=== PATIENT | male | born 1975 | race Caucasian/White ===

== ENCOUNTER → 2017-10-18 15:31 | Outpatient (CLI) | payer BC, SELFPAY | PROVIDERS: PCP Family Medicine; Visit Provider Nurse Practitioner | DX: G47.30 Sleep apnea, unspecified (principal); G47.10 Hypersomnia, unspecified; R06.83 Snoring; G47.00 Insomnia, unspecified | CPT/HCPCS: 95806 ==

== ENCOUNTER → 2019-08-27 14:51 | Outpatient (CLI) | payer BC, SELFPAY ==
[2019-08-27 15:34] LABS: Basophils # 0.1 K/mm3 (0-0.2); Basophils % 0.8 % (0.1-2.0); Eosinophils # 0.1 K/mm3 (0.0-0.4); Eosinophils % 1.4 % (0.1-12.0); Hematocrit 47.6 % (42.0-52.0); Lymphocytes # 1.7 K/mm3 (0.7-4.5); Mean Corpuscular HGB Conc 33.6 g/dL (31.8-35.4); Mean Corpuscular Hemoglobin 30.3 pg (27.0-31.2); Mean Corpuscular Volume 90.1 fl (80-94); Mean Platelet Volume 7.5 fl (7.4-10.4); Monocytes # 0.4 K/mm3 (0.1-1.0); Monocytes % 6.2 % (1.7-9.3); Neutrophils # 4.5 K/mm3 (1.8-7.8); Neutrophils % 66.5 % (37.0-80.0); Platelet Count 297 K/mm3 (142-424); Red Blood Count 5.28 M/mm3 (4.60-6.20); Red Cell Distribution Width 13.5 % (11.5-17.5); White Blood Count 6.8 K/mm3 (4.8-10.8)
[2019-08-27 17:25] LABS: Troponin I 0.02 ng/ml (0.00-0.06)
[2019-08-27 17:33] LABS: Alanine Aminotransferase 32 U/L (12-78); Albumin Level 4.1 gm/dL (3.4-5.0); Albumin/Globulin Ratio 1.3 (1.1-1.8); Alkaline Phosphatase 48 U/L (46-116); Anion Gap 14.3 mEq/L (5-15); Aspartate Amino Transferase 19 U/L (15-37); Bilirubin,Total 0.3 mg/dL (0.2-1.0); Blood Urea Nitrogen 12 mg/dL (7-18); Calcium 8.5 mg/dL (8.5-10.1); Carbon Dioxide 30 mmol/L (21.0-32.0); Chloride 102 mmol/L (98-107); Creatinine,Serum 0.99 mg/dL (0.70-1.30); Estimated Glomerular Filt Rate 82 ml/min (>60); Free T4 (Free Thyroxine) 0.77 ng/dl (0.76-1.46); GFR (African American) 99 ML/MIN (>60); Globulin 3.1 gm/dl (1.3-3.2); Glucose 75 mg/dL (74-106); Potassium 4.3 mmoL/L (3.5-5.1); Sodium 142 mmol/L (136-145); Thyroid Stimulating Hormone 1.06 uIU/ml (0.358-3.740); Total Protein,Serum 7.2 gm/dL (6.4-8.2)
[2019-08-29 13:05] LABS: Myoglobin 40 ng/mL (28-72)
== END ==
PROVIDERS: Visit Provider Nurse Practitioner Family
DX: R07.89 Other chest pain (principal); R00.2 Palpitations; R20.0 Anesthesia of skin
CPT/HCPCS: 36415; 80053; 83735; 83874; 84439; 84443; 84484; 85025

== ENCOUNTER → 2019-09-25 07:50 | Outpatient (CLI) | payer BC, SELFPAY ==
--- NOTE | 2019-09-25 07:51 | CA_ITS ---
APPROVED REPORT EXAM: Comprehensive 2D, Doppler, and color-flow Echocardiogram Web Services Developer: Kandice Chance RDCS Ht: 6 ft 5 in Wt: 220lbs BSA: 2.33 BP: 136/78 mmHg Indications: Palpitations 2D Dimensions LVOT 2.07 cm (M/F) 1.5-2.5 M-Mode Dimensions RVDd 2.70 cm (0.9-2.6) LVDd 5.81 cm (3.5-5.7) LVDs 4.16 cm (3.5-5.7) IVSd 1.25 cm (0.6-1.1) PWd 0.93 cm (0.6-1.1) EF (Teich) 54.10% FS 28.40% EDV (Teich) 167.20 mL ESV (Teich) 76.80 mL LV Diastology E/A Ratio 0.88 Mitral Valve MV A Velocity 61.00 (40-130 cm/s) Left Ventricle Left atrium is mildly enlarged, left ventricle is normal size, mild concentric left ventricular hypertrophy, visually estimated ejection fraction 55% with no regional wall motion abnormality, grade 1 diastolic dysfunction seen without tissue Doppler evidence of raise left atrial pressure. Right Ventricle Right atrium and right ventricle are normal size and contractility. Aortic Valve Aortic valve is grossly normal, there is no aortic stenosis aortic insufficiency. Mitral Valve Mitral valve is grossly normal, there is mild mitral regurgitation. Tricuspid Valve Tricuspid valve is grossly normal, there is mild tricuspid regurgitation, tricuspid regurgitation jet velocity is inadequate for calculation of the right ventricular systolic pressure. Pulmonic Valve Pulmonic valve is poorly visualized. Great Vessels Aortic root is normal size. Pericardium No significant pericardial effusion noted. Conclusion 1. Mildly enlarged left atrium, normal left ventricular size, mild concentric left ventricular hypertrophy, visually estimated ejection fraction 55% with no regional wall motion abnormality, grade 1 diastolic dysfunction seen without tissue Doppler evidence of raise left atrial pressure. 2. Mild mitral and tricuspid regurgitation. 3. No significant pericardial effusion noted. Electronically signed by : Prashant Whitman, 09/25/2019 19:50:58
--- NOTE | 2019-09-25 07:51 | CA_ITS ---
APPROVED REPORT Exam: Exercise Treadmill Technologist: ainsley haynes, Ht: 6 ft 4 in Wt: 230 lbs BSA: 2.35 m2 HR: 73 bpm BP: 141/99 mmHg Indications: PalpATATIONS Medical History Medications: Escitalopram,,,,, NeBivolol,,,,, Allergies: No known drug allergies Cardiac Risk Factors: Smoking Stress Test Details Test: Pritesh HR Resting HR: 80 bpm Max Heart Rate (APMHR): 174 bpm Max HR Achieved: 150 bpm Target HR (85% APMHR): 147 bpm % of APMHR: 86 Recovery HR: 91 bpm BP Resting BP: 141/99 mmHg Max BP: 170/110 mmHg Recovery BP: 160.0/100.0 mmHg ECG Resting ECG: Sinus Rhythm Clinical Exercise duration: 07:37 min Highest Stage Achieved: Exercise capacity: 10.1 METs Stress ECG Conclusion Pritesh Protocol completed. Test stopped due to SOB. Hypertensive repsone to exercise. Patient had not taken his Bisoprolol for 3-4 days. After 9 min in recovery BP 144/90. Patient had SOB that resolved during recovery. Occasional PVC. Less than 1.5mm ST depression. Electronically signed by : Prashant Whitman, 09/25/2019 18:54:41
== END ==
PROVIDERS: PCP Nurse Practitioner Family; Visit Provider Urology
DX: I49.3 Ventricular premature depolarization (principal); R00.2 Palpitations; R06.09 Other forms of dyspnea; R40.0 Somnolence
CPT/HCPCS: 93017; 93306

== ENCOUNTER → 2019-10-16 10:00 | Outpatient (CLI) | payer BC, SELFPAY | PROVIDERS: PCP Nurse Practitioner Family; Visit Provider Urology | DX: R00.2 Palpitations (principal); I49.3 Ventricular premature depolarization | CPT/HCPCS: 93270 ==

== ENCOUNTER 2020-06-29 18:50 | Emergency (ER) | payer BC, SELFPAY ==
[2020-06-29 18:53] VITALS: BP 136/78; PULSE 78; RESP 18; TEMP 36.7; O2SAT 99; BMI 30.4
--- NOTE | 2020-06-29 19:12 | HMH.EDUTC ---
[facility] [place] Clinical Impression: Encounter for laboratory testing for COVID-19 virus Disposition: Home, Self-Care Condition on Discharge: Good Instructions: Preventing the Spread of Coronavirus Discharge Instructions Additional Instructions: *Monitor Temp, Over the counter Motrin or Tylenol as directed/as needed Tylenol every 4 hours and Motrin every 6 hours (as long as your family doctor has told you that you can take it) for fever or pain. and straight to ER if unable to lower temp less than 101.0 after medication given *Warm salt water gargles may help to soothe the throat *Throat Lozenges *Warm fluids like tea with honey may help to soothe the throat *Sleep elevated *Humidifier/Vaporizer Follow up IMMEDIATELY for new or worsening symptoms or no Noticeable improvement over the next 48-72 hours. 911 for difficulty breathing or swallowing You was tested for today for COVID19 your test result should be back later this evening, you may call back later this evening to see if your test results are back and the result You was given a handout with instructions for Self Quarantine and Self isolation for while you wait on test results and what to do if they are positive Referrals: Yaritza Gallegos APRN [Primary Care Provider] - As needed Time of Disposition: 19:13 Medical Decision Making - Yosvany Inquiry Pt receiving controlled substance: No Yosvany was queried for this patient: No Vital Signs: 06/29/20 18:53 06/29/20 19:18 Temperature 98.1 F 98.1 F Temperature Source Oral Oral Pulse Rate 78 Pulse Rate [Radial] 78 Respiratory Rate 18 18 Blood Pressure 136/78 Blood Pressure [Right Arm] 136/78 Blood Pressure Mean [Right Arm] 97 Blood Pressure Source Automatic Cuff Blood Pressure Source [Right Arm] Automatic Cuff Blood Pressure Position Sitting Blood Pressure Position [Right Arm] Sitting 02 Sat by Pulse Oximetry 99 Oxygen Delivery Method Room Air Room Air Orders (Tests/Meds): ORDERS Category Date Time Status Covid-19 Nasal PCR ([facility]) Routine Lab 06/29/20 19:03 Received [facility] [place] - General Stated complaint: Wants COVID test Time Seen by Provider: 06/29/20 19:12 Mode of Arrival: Ambulatory Source of Information: Patient Limitations: No Limitations Description of Symptoms (Recalled from Triage Doc. by RN): WANTS COVID TEST HEENT Symptoms (Recalled from RN notes): No Resp Symptoms (Recalled from RN notes): No Skin Symptoms (Recalled from RN notes): No MS Symptoms (Recalled from RN notes): No Functional Status (Recalled from RN notes): WNL - History of Present Illness Provider Complaint: Patient states that he is getting this weekend and leaving to travel to [place] on Saturday and they are requiring him to get a COVID test prior to leaving so he came in today to get a COVID test Denies any symptoms - Related Data Home Medications Medication Instructions Recorded Confirmed nebivolol 5 mg tablet 5 mg PO DAILY 08/31/19 11/13/19 Allergies Allergy/AdvReac Type Severity Reaction Status Date / Time No Known Allergies Allergy Verified 11/13/19 11:37 - Worker's Comp Is this a Worker's Comp case?: No [facility] History - Hepatitis A Screen Drug use history?: No High risk sexual behaviors?: No History of sexually transmitted infection?: No Currently employed?: No Childcare worker?: No Do you have indoor plumbing?: Yes Do you have electricity?: Yes Attestation statement:: This patient has been screened for Hepatitis A risk factors. I have reviewed the patient's past medical history: Yes Medical History: Reports:: Anxiety, Depression, Hypertension, Palpitations - Social History Smoking Status: Current every day smoker Alcohol Intake: never Alcohol Intake Frequency:: holidays/special occasions only Substance Use Type: denies use Occupational Status: other - Psychiatric History Pschychiatric History:: Reports:: Anxiety, Depression Family Hx:: Hypertension ROS Obtai
[2020-06-29 19:18] VITALS: BP 136/78; PULSE 78; RESP 18; TEMP 36.7; O2SAT 99
== END 2020-06-29 19:19 | disposition home or self-care (01) ==
PROVIDERS: Emergency Provider Nurse Practitioner; PCP Nurse Practitioner Family
DX: Z20.828 Contact with and (suspected) exposure to other viral communicable diseases (principal); F41.8 Other specified anxiety disorders; I10 Essential (primary) hypertension; F17.210 Nicotine dependence, cigarettes, uncomplicated
CPT/HCPCS: 99201; U0003

== ENCOUNTER → 2020-10-06 10:26 | Outpatient (CLI) | payer BC, SELFPAY | PROVIDERS: PCP Nurse Practitioner; Visit Provider Nurse Practitioner | DX: R06.00 Dyspnea, unspecified (principal); R00.2 Palpitations | CPT/HCPCS: 93270 ==

== ENCOUNTER → 2021-06-29 17:41 | Outpatient (CLI) | payer BC, SELFPAY | PROVIDERS: Visit Provider Nurse Practitioner | DX: Z20.822 Contact with and (suspected) exposure to COVID-19 (principal) | CPT/HCPCS: C9803; U0003; U0005 ==

== ENCOUNTER → 2021-07-10 12:12 | Outpatient (CLI) | payer BC, SELFPAY | PROVIDERS: PCP Nurse Practitioner Family; Visit Provider Nurse Practitioner | DX: Z20.822 Contact with and (suspected) exposure to COVID-19 (principal) | CPT/HCPCS: C9803; U0003; U0005 ==

== ENCOUNTER → 2021-08-15 15:38 | Outpatient (CLI) | payer BC, SELFPAY | PROVIDERS: PCP Nurse Practitioner Family; Visit Provider Nurse Practitioner | DX: Z20.822 Contact with and (suspected) exposure to COVID-19 (principal) | CPT/HCPCS: C9803; U0003; U0005 ==

== ENCOUNTER → 2021-11-14 15:18 | Outpatient (CLI) | payer BC, SELFPAY ==
--- NOTE | 2021-11-14 15:23 | US_ITS ---
FINAL REPORT TECHNIQUE: Ultrasound images of the testicles were obtained bilaterally. Color Doppler images were obtained. CLINICAL HISTORY: LT TESTICULAR PAIN,LUMP IN TESTICLE FINDINGS: The right testicle measures 2.9 x 5.2 x 4.2 cm. The left testicle measures 2.7 x 5.3 x 3.6 cm. Normal flow is identified bilaterally. There is a left varicocele. IMPRESSION: Left-sided varicocele. Reviewed, Interpreted and Dictated by Harsh Linares III, MD Transcribed by Carmita Ruiz Authenticated by Harsh Linares III, MD on 11/14/2021 04:53:28 PM [facility]
== END ==
PROVIDERS: PCP Nurse Practitioner Family; Visit Provider Nurse Practitioner Family
DX: N50.812 Left testicular pain (principal); N50.89 Other specified disorders of the male genital organs
CPT/HCPCS: 76870

== ENCOUNTER 2022-04-10 12:28 | Emergency (ER) | payer BC, SELFPAY ==
[2022-04-10 12:35] VITALS: BP 141/80; PULSE 70; RESP 17; TEMP 36.6; O2SAT 98; BMI 30.4
--- NOTE | 2022-04-10 13:04 | HMH.EDUTC ---
[facility] [place] Disposition Clinical Impression: Encounter for laboratory testing for COVID-19 virus Sinusitis Qualifiers: Sinusitis location: unspecified location Chronicity: unspecified Qualified Code(s): J32.9 - Chronic sinusitis, unspecified Disposition: Home, Self-Care Condition on Discharge: Good Instructions: DI for COVID-19 (Suspected or Confirmed ), Preventing the Spread of Coronavirus Discharge Instructions Additional Instructions: *Monitor Temp, Over the counter Motrin or Tylenol as directed/as needed Tylenol every 4 hours and Motrin every 6 hours (as long as your family doctor has told you that you can take it) for fever or pain. and straight to ER if unable to lower temp less than 101.0 after medication given *Warm salt water gargles may help to soothe the throat *Throat Lozenges *Warm fluids like tea with honey may help to soothe the throat *Sleep elevated *Humidifier/Vaporizer Follow up IMMEDIATELY for new or worsening symptoms or no Noticeable improvement over the next 48-72 hours. 911 for difficulty breathing or swallowing You were tested for today for COVID19 your test result should be back in the next 24-48 hours, you may check your results on the [facility] My Health Portal Make sure to take your Vitamins Vit. C Vit D and Zinc if you can take them Prescriptions: Fluticasone Propionate [Flonase 50mcg nasal spray 16gm] 1 spr NS DAILY #1 each Transmission Status: Pending to [id number] Azithromycin [Z-Shant 250mg Tab] 250 mg PO DIRECTED #6 tab Transmission Status: Pending to [id number] Referrals: Yaritza Gallegos APRN [Primary Care Provider] - Forms: Work/School Release Medical Decision Making - Yosvany Inquiry Pt receiving controlled substance: No Yosvany was queried for this patient: No Vital Signs: 04/10/22 12:35 Temperature 97.9 F Temperature Source Oral Pulse Rate [Right Brachial] 70 Respiratory Rate 17 Blood Pressure [Right Arm] 141/80 H Blood Pressure Mean [Right Arm] 100 Blood Pressure Source [Right Arm] Automatic Cuff Blood Pressure Position [Right Arm] Sitting 02 Sat by Pulse Oximetry 98 Oxygen Delivery Method Room Air Orders (Tests/Meds): ORDERS Category Date Time Status Covid-19 Nasal PCR ([facility]) Routine Lab 04/10/22 12:36 Received Medical Decision Narrative: Patient states that he has taken azithromycin in the past without complications or reactions [facility] [place] HPI - General Stated complaint: Covid test Time Seen by Provider: 04/10/22 13:04 Mode of Arrival: Ambulatory Source of Information: Patient Limitations: No Limitations Description of Symptoms (Recalled from Triage Doc. by RN): PATIENT C/O HEADACHE, SINUS PRESSURE, AND BODY ACHES SINCE YESTERDAY HEENT Symptoms (Recalled from RN notes): Yes Resp Symptoms (Recalled from RN notes): No Skin Symptoms (Recalled from RN notes): No MS Symptoms (Recalled from RN notes): No Functional Status (Recalled from RN notes): WNL - History of Present Illness Provider Complaint: Patient state that he has been having sinus pain and pressure and headache on and off for over a week and has got worse over the last couple of days and he started having pressure like pain in his ears yesterday so he came in to get checked - Related Data Home Medications Medication Instructions Recorded Confirmed nebivolol 5 mg tablet 5 mg PO DAILY 08/31/19 11/13/19 Previous Rx's Medication Instructions Recorded Azithromycin [Z-Shant 250mg Tab] 250 mg PO DIRECTED #6 tab 04/10/22 Fluticasone Propionate [Flonase 1 spr NS DAILY #1 each 04/10/22 50mcg nasal spray 16gm] Allergies Allergy/AdvReac Type Severity Reaction Status Date / Time No Known Allergies Allergy Verified 11/13/19 11:37 - Worker's Comp Is this a Worker's Comp case?: No [facility] History - Hepatitis A Screen Attestation statement:: This patient has been screened for Hepatitis A risk factors. I have reviewed the patient's past medical histo
[2022-04-10 13:16] VITALS: BP 141/80; PULSE 70; RESP 17; TEMP 36.6; O2SAT 98
== END 2022-04-10 13:23 | disposition home or self-care (01) ==
PROVIDERS: Emergency Provider Nurse Practitioner; PCP Nurse Practitioner Family
DX: J32.9 Chronic sinusitis, unspecified (principal); Z20.822 Contact with and (suspected) exposure to COVID-19
CPT/HCPCS: 99212; C9803; G0463; U0003; U0005

== ENCOUNTER 2023-07-20 15:28 | Emergency (ER) | payer BC, SELFPAY ==
[2023-07-20 15:45] VITALS: BP 149/94; PULSE 100; RESP 19; TEMP 37.1; O2SAT 96; BMI 31.5
--- NOTE | 2023-07-20 16:09 | EXP.UTC ---
Discharge Plan Disposition Patient Disposition: Home, Self-Care Condition: Good Prescriptions Prescriptions: New prednisone [prednisone] 20 mg tablet 20 mg PO BID 5 Days Qty: 10 0RF amoxicillin-pot clavulanate 875-125 mg Tablet 1 tab PO Q12H Qty: 20 0RF guaifenesin [Mucinex] 600 mg tablet extended release 12hr 1,200 mg PO BID PRN (Reason: cough/congestion) Qty: 20 0RF No Action Bystolic 5 mg tablet 5 mg PO DAILY Trintellix 10 mg tablet 10 mg PO DAILY Qty: 30 1RF diazepam [Valium] 10 mg tablet 10 mg PO BID PRN (Reason: anxiety) Qty: 60 0RF fluticasone propionate 120 SPRAY bottle 1 spr NS DAILY Qty: 1 0RF Rx Instructions: one spray in each nostril daily Referrals Follow up/Referrals: Yaritza Gallegos APRN [Primary Care Provider] - See instructions Activity Restrictions/Add. Instructions Additional Instructions/Restrictions: Start antibiotic today. Be sure to complete entire prescription even if feeling better Monitor temp. Tylenol every 4 hours as needed and / or ibuprofen every 6 hours as needed ( As long as your primary care physician has told you that it ok to take both. For fever/aches/pains ER if no less than 101 despite Tylenol or Motrin Humidifier/vaporizer or hot steamy shower Mucinex for your cough Be sure to drink lots of water. *Start steroid today. Helps with inflammation therefore, cough and wheezing. Follow directions on the package. Reviewed side effects. Patient reports taking them before. Follow up IMMEDIATELY for new or worsening of symptoms OR no noticeable improvement over the next 48-72 hours. 911 immediately for any life threatening symptoms such as chest pain or difficulty breathing Clinical Impressions Clinical Impression: Bronchitis Sinusitis Qualifiers: Sinusitis location: unspecified location Chronicity: unspecified Qualified Code(s): J32.9 - Chronic sinusitis, unspecified Instructions Patient Instructions: Sinusitis, DI for Sinusitis, Amoxicillin and Clavulanic Acid Discharge ED Provider: Kalli Gaxiola [facility] General Stated complaint: Head congestion,[place],dizzziness Mode of Arrival: Ambulatory Source of Information: Patient Limitations: No Limitations Time Seen by Provider: 07/20/23 16:09 Description of Symptoms (Recalled from Triage Doc. by RN): PATIENT C/O PRODUCTIVE COUGH, CONGESTION, SINUS PRESSURE, AND HEADACHE HEENT Symptoms (Recalled from RN notes): Yes Resp Symptoms (Recalled from RN notes): Yes Skin Symptoms (Recalled from RN notes): No MS Symptoms (Recalled from RN notes): No Functional Status (Recalled from RN notes): WNL History of Present Illness Provider Complaint: Patient states that he has been having sinus pain and pressure, drainage in the back of his throat and at times he can cough it up, headache and pressure like feeling in his ears States he feels like he has a bad sinus infection so he came in when it was still getting worse today Related Data Home Medications Medication Instructions Recorded Confirmed nebivolol 5 mg tablet (Bystolic) 5 mg PO DAILY 08/31/19 09/05/22 Previous Rx's Medication Instructions Recorded fluticasone propionate 50 1 spr intranasal DAILY #1 ea 04/10/22 mcg/actuation nasal spray,suspension vortioxetine 10 mg tablet 10 mg PO DAILY #30 tabs 01/08/23 (Trintellix) diazepam 10 mg tablet (Valium) 10 mg PO BID PRN anxiety #60 tabs 04/22/23 amoxicillin 875 mg-potassium 1 tab PO Q12H #20 tabs 07/20/23 clavulanate 125 mg tablet guaifenesin 600 mg tablet, 1,200 mg PO BID PRN 07/20/23 extended release 12 hr (Mucinex) cough/congestion #20 tabs prednisone 20 mg tablet 20 mg PO BID 5 days #10 tabs 07/20/23 Allergies Allergy/AdvReac Type Severity Reaction Status Date / Time No Known Allergies Allergy Verified 01/08/23 10:29 Worker's Comp Is this a Worker's Comp case?: No [facility] Disclaimer: The information contained in this
[2023-07-20 16:20] VITALS: BP 149/94; PULSE 100; RESP 19; TEMP 37.1; O2SAT 96
== END 2023-07-20 16:26 | disposition home or self-care (01) ==
PROVIDERS: Emergency Provider Nurse Practitioner; PCP Nurse Practitioner Family
DX: J20.9 Acute bronchitis, unspecified (principal); R51.9 Headache, unspecified; R09.81 Nasal congestion; R42 Dizziness and giddiness; F17.210 Nicotine dependence, cigarettes, uncomplicated
CPT/HCPCS: 99212; 99214; G0463

== ENCOUNTER 2023-11-26 12:10 | Outpatient (CLI) | payer BC, SELFPAY ==
--- NOTE | 2023-11-26 12:11 | CT_ITS ---
APPROVED REPORT Dye Machine Operator: CLINICAL INDICATION Chest Pain TECHNIQUE Image Acquisition: A 128 slice MDCT scanner ([employer] View) was used for data acquisition. A noncontrast coronary calcium scan was performed. A CT attenuation threshold of 130 Hounsfield units (HU) was used for the detection of calcium in contiguous voxels of 1 sq mm in area to be counted as individual lesions. Bolus tracking in the ascending aorta with a threshold of 180 HU was performed. Immediately afterwards, ECG synchronized cardiac CT was then performed from the cardiac base to apex using retrospective gating with ECG tube current modulation. A total of 85 mL of Isovue 370 mg/mL contrast medium was administered at 5 mL/sec followed by a saline flush using a biphasic injection protocol. A tube voltage of 120 KVp was used. The patient received the following medications prior to the cardiac CT. 0.8 mg of sublingual nitroglycerin The average heart rate at the time of acquisition was 50 bpm and regular. Image Reconstruction Transaxial images were reconstructed at 0.67 mm slide thickness. Data was reviewed interactively on an advanced workstation capable of 2 and 3-dimensional displays in all conventional reconstruction formats, including multiplanar reformations, maximum intensity projections, curved multiplanar reformations, and volume rendered reconstructions. When applicable, selected routine images describing the relevant coronary anatomy and pathology were saved and sent to PACS. Complications None Technical Quality Overall image quality was good. Coronary artery opacification was adequate. Total DLP (Dose-Length Product) is 1518.0 mGy-cm. The reported value represents the total of one or more individual components during the CT acquisition of this date and at this time, and as such, the same value may appear in more than one CT report depending on the interpreting/reporting physicians. COMPARISON None FINDINGS CT Coronary Calcium Scoring LMA (Left Main Artery) = 0 LAD (Left Anterior Descending) = 0 LCX (Left Coronary Circumflex) = 0 RCA (Right Coronary Artery) = 0 Total Calcium Score = 0 using the AJ-130 method. The interpretation of the calcium heart score is based on the following continuum*: 0 = no calcified plaque detected (risk of coronary artery disease is very low ??? less than 5%) 1-10 = calcium detected in extremely minimal levels (risk of coronary diseases is still low ??? less than 10%) 11-100 = mild levels of plaque detected with certainty (mild or minimal narrowing of heart arteries is likely) 101-400 = definite,at least moderate levels of plaque detected (relatively high risk of a heart attack within 3-5 years) >401-999 = extensive levels of plaque detected (high risk of heart attack, high levels of vascular disease are present, high likelihood of at least one significant coronary narrowing) *The calcium heart score quantifies the burden of coronary calcification/plaque in the coronary arteries. The calcium heart score is not able to evaluate the presence or burden of non-calcified (i.e. soft) plaque. There is no identifiable calcification in the aortic valve, mitral annulus or mitral valve, pericardium, or myocardium. Coronary CT Angiography The coronary arterial system is right dominant. Quantitative Stenosis Grading: Left Main (LM): The left main originates normally from the left sinus of Valsalva. The LM bifurcates into the left anterior descending artery and left circumflex artery. The LM is patent with no evidence of atherosclerosis. Left Anterior Descending (LAD) and Diagonal Branches: The LAD gives off 4 diagonal branch(es). The LAD and its branches are patent with no evidence of atherosclerosis. There is no evidence of LAD-myocardial bridge. Left Circumflex (LCX) and Obtuse Marginals (OM): The LCX gives off 1 Obtuse Marginal (OM) branch(es). The LCX and its branches are patent with no evidence of atherosclerosis. Right Coronary Artery (RCA): The RCA originates normally from the right sinus of Valsalva. The RCA gives off a posterior descending artery (PDA) and posterolateral (PL) branches. The RCA and its branches are patent with no evidence of atherosclerosis. Non-Coronary Cardiac Findings: Analysis of the left ventricular (LV) structure and function was performed after 3-D reconstruction of the LV from axial images, with user-corrected automatic contouring for assessment of LV volumes and user-defined reconstruction from oblique planes for measurement of 3-D cardiac structure and function. -The left ventricle systolic function is normal. -There is no left atrial appendage filling defect. Two right pulmonary veins and two left pulmonary veins drain normally into the left atrium. -No pericardial thickening or calcification. -Central and branch pulmonary arteries in the [id number] are unremarkable. -Thoracic aorta within the visualized thoracic aortic-branches in the [id number] is unremarkable. Extracardiac Structures No significant extra-cardiac findings. Note, however, that this study is focused on the cardiac findings. IMPRESSION -No coronary calcification with an Agatston score = 0 using the AJ-130 method. -No evidence of significant flow-limiting atherosclerosis of the coronary arteries. -CAD-RADS 0. Management recommendations per ACC/AHA guidelines*, as clinically appropriate. *Recommendations: CAD RADS 0: Reassurance. Consider non-atherosclerotic causes of chest pain. CAD RADS 1: Consider non-atherosclerotic causes of chest pain. Consider preventive therapy and risk factor modification. CAD RADS 2: Consider non-atherosclerotic causes of chest pain. Consider preventive therapy and risk factor modification, particularly for patients with nonobstructive plaque in multiple segments. CAD RADS 3: Consider further functional testing. Consider symptom-guided anti-ischemic and preventive pharmacotherapy as well as risk factor modification per published guideline statements. CAD RADS 4A: Consider further functional testing or invasive coronary angiography with revascularization per published guideline statements. Consider symptom-guided anti-ischemic and preventive pharmacotherapy as well as risk factor modification per published guideline statements. CAD RADS 4B: Invasive coronary angiography recommended with revascularization per published guideline statements. Consider symptom-guided anti-ischemic and preventive pharmacotherapy as well as risk factor modification per published guideline statements. CAD RADS 5: Consider invasive angiography and/or viability assessment with revascularization per published guideline statements. Consider symptom-guided anti-ischemic and preventive pharmacotherapy as well as risk factor modification per published guideline statements. CRITICAL RESULT None COMMUNICATION Per this written report The coronary and cardiac findings of this CCTA were reviewed, reported, and signed by Mohsen Niño MD (Drilling Engineer) Conclusion Electronically signed by : Shabana Niño MD 11/27/2023 22:27:45
[2023-11-26 12:19] VITALS: BMI 31.6
--- NOTE | 2023-11-26 12:39 | CA_ITS ---
APPROVED REPORT EXAM: Comprehensive 2D, Doppler, and color-flow Echocardiogram Cylinder Head Assembler: Dolores Guerin RVT Ht: 6 ft 4 in Wt: 264lbs BSA: 2.49 BP: 135/86 mmHg Indications: CP,HTN,PALPS,SMOKER,RBBB 2D Dimensions LA Volume 77.60 mL LA Volume Index 31.04 mL/m2 (M/F) 16-34 M-Mode Dimensions RVDd 1.73 cm (0.9-2.6) LA Diam 4.99 cm (1.9-4.0) LVDd 6.28 cm (3.5-5.7) LVDs 3.79 cm (3.5-5.7) IVSd 1.73 cm (0.6-1.1) PWd 0.84 cm (0.6-1.1) EF (Teich) 69.20% FS 39.60% EDV (Teich) 199.70 mL TAPSE 2.26 (<1.7) ESV (Teich) 61.60 mL LV Diastology E Decel Time 210 (160-240 msec) E/A Ratio 1.0 Aortic Valve MARCELLUS Index 1.94 cm2/m2 AoV Peak Karlos. 149.0 (50-130 cm/s) AO Peak GR. 8.90 mmHg AO Mean GR. 4.80 (<5 mmHg) AO VTI 34.1 (18-25 cm) MARCELLUS (VTI) 4.95 (2.5-4.5 cm2) Mitral Valve MV E Max Karlos. 60.0 (40-130 cm/s) MV A Velocity 58.0 (40-130 cm/s) E/A Ratio 1.02 MV PHT 62.0 ms Pulmonary Valve PV Peak Velocity 78.0 (50-150 cm/s) Left Ventricle The left ventricle is normal size. The left ventricular systolic function is normal. The left ventricular ejection fraction is within the normal range. There is asymmetric increase in LV wall thickness. IVSd 1.4 cm. There is no evidence of LVOT obstruction at rest or with Valsalva. There is normal LV segmental wall motion. The left ventricular diastolic function is normal. LVEF is 55%. Right Ventricle The right ventricle is normal size. The right ventricular systolic function is normal. Atria Left atrium is mildly dilated. The right atrium size is normal. Aortic Valve The aortic valve opens well. There is no aortic valvular stenosis. No aortic regurgitation is present. Mitral Valve The mitral valve is normal in structure. No evidence of systolic anterior motion. No evidence of mitral valve stenosis. There is no mitral valve regurgitation noted. Tricuspid Valve The tricuspid valve leaflets are thin and pliable. Mild tricuspid regurgitation. RVSP is normal. Pulmonic Valve The pulmonary valve is normal in structure. Trace pulmonic regurgitation. Great Vessels The aortic root is normal in size. The ascending aorta is normal in size. IVC is normal in size and collapses >50% with inspiration. Pericardium There is no pericardial effusion. Other Information Study Quality: Fair Conclusion Normal biventricular systolic function. Increase in LV wall thickness IVSd 1.4 cm. Mild LA dilation. Mild TR. In the setting of asymmetric increase in LV wall thickness and presence of symptoms, further evaluation to rule out HCM is recommended with cardiac MRI (HCM protocol). Electronically signed by : Shabana Niño MD 11/28/2023 12:51:43
[2023-11-26 12:49] LABS: Blood Urea Nitrogen 14 mg/dl (9-20); Calcium 9.1 mg/dl (8.4-10.2); Carbon Dioxide 30 mmol/L (22.0-30.0); Chloride 104 mmol/L (98-107); Creatinine Clearance Estimated 147 mL/min (50-200); Estimated Glomerular Filt Rate 79 ml/min (>60); GFR (African American) 96 ML/MIN (>60); Glucose 98 mg/dl (74-100); Sodium 139 mmol/L (136-145)
[2023-11-26 13:06] VITALS: BP 134/94; PULSE 56; RESP 16; O2SAT 96
[2023-11-26] MEDS: NITROGLYCERIN 0.4MG SL TABLET SL (13:06)
[2023-11-26 13:09] VITALS: BP 123/87; PULSE 52; RESP 16; O2SAT 96
[2023-11-26 13:15] VITALS: BP 109/69; PULSE 55
[2023-11-26 13:26] VITALS: BP 121/69; PULSE 55; RESP 16; O2SAT 98
[2023-11-26 13:36] VITALS: BP 122/77; PULSE 53; RESP 16; O2SAT 96
[2023-11-26] MEDS: 0.9 % SODIUM CHLORIDE 50 ML VIAL IV (13:54)
[2023-11-26] MEDS: SODIUM CHLORIDE 0.9% 10ML SYR (RAD ONLY) 10 ML IV (13:54)
[2023-11-26] MEDS: IOPAMIDOL-370 (76%);100ML BOTTLE 85 ML IV (13:54)
[2023-11-26 13:55] VITALS: PULSE 50; TEMP 35.5
== END 2023-11-26 13:55 | disposition home or self-care (01) ==
PROVIDERS: PCP Family Medicine; Visit Provider Nurse Practitioner
DX: R07.89 Other chest pain (principal); I45.10 Unspecified right bundle-branch block; R94.31 Abnormal electrocardiogram [ECG] [EKG]; R06.00 Dyspnea, unspecified; I49.3 Ventricular premature depolarization; F17.200 Nicotine dependence, unspecified, uncomplicated
CPT/HCPCS: 75571; 75574; 80048; 93306; Q9967

== ENCOUNTER 2023-12-02 10:11 | Outpatient (CLI) | payer BC, SELFPAY ==
--- NOTE | 2023-12-02 10:14 | CT_ITS ---
FINAL REPORT TECHNIQUE: Thin section axial images were obtained through the paranasal sinuses without contrast. CLINICAL HISTORY: Sinusitis FINDINGS: The paranasal sinuses are clear. There is no air-fluid level or significant mucosal thickening. The bilateral ethmoid infundibulum are patent. There is right nasal septal deviation. There is no acute osseous abnormality. Remaining soft tissues are within normal limits. IMPRESSION: No evidence of acute sinusitis. Right nasal septal deviation. Reviewed, Interpreted and Dictated by Sandra Escalona MD Transcribed by Dian Araujo Authenticated and [facility]
== END 2023-12-02 23:59 ==
LOC: RAD 10:12
PROVIDERS: PCP Nurse Practitioner; Visit Provider Nurse Practitioner
DX: J32.9 Chronic sinusitis, unspecified (principal); F17.210 Nicotine dependence, cigarettes, uncomplicated
CPT/HCPCS: 70486

== ENCOUNTER 2025-03-03 16:40 | Outpatient (CLI) | payer BC, SELFPAY ==
--- OUTSIDE RECORDS SUMMARY | 2025-03-03 16:43 | XMS_ITS | Clinical Summary ---
Author Organization [facility] Address [address] [place] [id number] Phone [email or web address] Care Team Providers Care Precision Lens Grinder Apprentice Name Role Phone Masood Fletcher Primary Care Provider [phone] Allergies No known active allergies Medications sildenafil (VIAGRA) 100 MG tablet Take daily as needed 01/13/2020 Active Bystolic 5 MG tablet Take 5 mg by mouth 1 (one) time each day. 06/30/2020 Active loratadine (CLARITIN) 10 MG tablet Take 10 mg by mouth 1 (one) time each day. Active diazePAM (VALIUM) 5 MG tablet 06/22/2021 Active Active Problems Problem Noted Date Diagnosed Date Low back pain 12/23/2013 Overview (02/05/2018): Family History Medical History Relation Name Comments Cancer Maternal Grandfather Diabetes Maternal Grandfather Diabetes Mother's Brother Cancer Paternal Grandfather Relation Name Status Comments Maternal Grandfather Mother's Brother Paternal Grandfather Social History Tobacco Use Types Packs/Day Years Used Date Smoking Tobacco: Every Day Cigarettes Smokeless Tobacco: Current Snuff Intimate Partner Violence Answer Date R ecorded Insults You Not on file 12/20/2020 Threatens You Not on file 12/20/2020 Screams at You Not on file 12/20/2020 Physically Hurt Not on file 12/20/2020 Intimate Partner Violence Score Not on file 12/20/2020 Stress Answer Date Recorded Stress in your Life 0 10/17/2020 Dealing with Stress Not on file 10/17/2020 Sex and Gender Information Value Date Recorded Sex Assigned at Not on file Legal Sex Male 8:38 AM CDT Gender Identity Not on file Sexual Orientation Not on file Last Filed Vital Signs Vital Sign Reading Time Taken Comments Blood Pressure 171/120 12/19/2021 3:31 PM EDT Pulse 77 12/19/2021 3:31 PM EDT Temperature 36.6 C (97.8 F) 04/21/2021 12:51 PM EDT Respiratory Rate 16 10/05/2020 9:04 AM EST Oxygen Saturation 99% 12/19/2021 3:02 PM EDT Inhaled Oxygen Concentration - - Weight 117 kg (257 lb) 12/15/2020 9:04 AM EDT Height 193 cm (6' 4 ) 12/15/2020 9:04 AM EDT Body Mass Index 31.28 12/15/2020 9:04 AM EDT Plan of Treatment Health Maintenance Due Date Last Done Comments Dental Cleaning/Exam 1973 Hepatitis B Immunization (1 of 3 - 19+ 3-dose series) 1992 Tetanus Diphtheria and Pertu ssis Immunization (1 - Tdap) 1992 Colorectal Cancer Screening 2003 Zoster Immunization (1 of 2) 2023 Covid-19 Immunization (1 - 2 024-25 season) 2024 Influenza Immunization (Seas on Ended) 2025 HIB Immunization Aged Out No longer e ligible based on patient's age to complete this topic HPV Immunization Aged Out No longer e ligible based on patient's age to complete this topic Hepatitis A Immunization Aged Out No longer eligible based on patient's age to complete this topic Pneumococcal: Ped (0 to 5 Yr s) and At-Risk Member (6 to 64 Yrs) Aged Out No longer e ligible based on patient's age to complete this topic Polio Immunization Aged Out No longer eligible based on patient's age to complete this topic Insurance A[place]Y IN [place] [facility] Address: [address] [place] [id number] [place] [address] Care Teams Precision Lens Grinder Apprentice Relationship Specialty Start Date End Date Masood Fletcher[address] [address] PCP - General Family Medicine 08/28/19
--- NOTE | 2025-03-03 16:46 | XR_ITS ---
FINAL REPORT TECHNIQUE: 5 views CLINICAL HISTORY: chronic back pain FINDINGS: There is no fracture present. There is no malalignment. There is moderate diffuse degenerative disc disease. Disc space narrowing is most advanced at L5-S1. Note is made of facet arthropathy. There is probable canal stenosis and neuroforaminal narrowing in the lower lumbar spine. Multiple left renal stones are identified. Largest stone is in the lower pole measuring up to 10 mm. IMPRESSION: Advanced degenerative changes in the lower lumbar spine. Reviewed, Interpreted and Dictated by Gurwinder Apple MD Transcribed by Carmita Ruiz Authenticated and [facility]
== END 2025-03-03 23:59 | disposition home or self-care (01) ==
LOC: RAD 16:41
PROVIDERS: PCP Nurse Practitioner; Visit Provider Nurse Practitioner
DX: M47.816 Spondylosis without myelopathy or radiculopathy, lumbar region (principal)
CPT/HCPCS: 72110

== ENCOUNTER 2025-07-23 07:27 | Outpatient (CLI) | payer SELFPAY ==
--- OUTSIDE RECORDS SUMMARY | 2025-07-23 07:32 | XMS_ITS | Clinical Summary ---
Author Organization [facility] Address [address] [place] [address] Phone [email or web address] Care Team Providers Care Nitrator Operator Name Role Phone Masood Fletcher Primary Care Provider [phone] Allergies No known active allergies Medications sildenafil [...] Health Maintenance Due Date Last Done Comments CT Colonography 1973 Colonoscopy 1973 Colorectal Cancer Screening Combo 1973 DNA Cologuard 1973 Dental Cleaning/Exam 1973 FIT or FOBT Test 1973 Sigmoidoscopy 1973 Hepatitis B Immunization (1 of 3 - 19+ 3-dose series) 1992 Tetanus Diphtheria and Pertu ssis Immunization (1 - Tdap) 1992 Pneumococcal: 50+ Years (1 o f 1 - PCV) 2023 Zoster Immunization (1 of 2) 2023 Covid-19 Immunization (1 - 2 season) 2025 Influenza Immunization (#1) 2025 HIB Immunization Aged Out No longer [...] patient's age to complete this topic Insurance [place] [address] [facility] [id number] [place] [address] Care Teams Nitrator Operator Relationship Specialty Start Date End Date Masood Fletcher[address] [address] PCP - General Family Medicine 08/28/19
--- NOTE | 2025-07-23 07:34 | MR_ITS ---
FINAL REPORT TECHNIQUE: Multiplanar MR without gadolinium enhancement CLINICAL HISTORY: SPINAL STENOSIS. BILATERAL LEG PAIN. FINDINGS: Sagittal images show normal vertebral height. Alignment is normal. Discogenic endplate changes are seen at L5-S1. Otherwise, signal pattern is unremarkable. T12-L1: Unremarkable. L1-2: Unremarkable. L2-3: Unremarkable. L3-4: Mild annular disc bulge with mild facet overgrowth. There is mild neuroforaminal narrowing. L4-5: Moderate annular disc bulge with mild facet overgrowth. There is mild neuroforaminal narrowing. L5-S1: Mild annular disc bulge with moderate facet overgrowth. There is mild neuroforaminal narrowing. IMPRESSION: Multilevel degenerative changes as above. Reviewed, Interpreted and Dictated by Gurwinder Apple MD Transcribed by Maya Trevino Authenticated and . [facility]
== END 2025-07-23 23:59 | disposition home or self-care (01) ==
LOC: RAD 07:30
PROVIDERS: PCP Nurse Practitioner; Visit Provider Nurse Practitioner
DX: M47.816 Spondylosis without myelopathy or radiculopathy, lumbar region (principal); M47.817 Spondylosis without myelopathy or radiculopathy, lumbosacral region; M48.00 Spinal stenosis, site unspecified
CPT/HCPCS: 72148

== ENCOUNTER 2025-08-17 22:34 | Emergency (ER) | payer BC, SELFPAY ==
[2025-08-17 22:40] VITALS: BP 156/101; PULSE 99; RESP 20; TEMP 36.8; O2SAT 99; BMI 31.6
--- NOTE | 2025-08-17 23:14 | ED_ITS ---
Discharge Plan Disposition Patient Disposition: Home, Self-Care Condition: Good Prescriptions Prescriptions: New methocarbamol 500 mg tablet 500 mg PO Q6H PRN (Reason: muscle spasm) Qty: 30 0RF lidocaine 5 % adhesive patch,medicated See Rx Instructions .ROUTE .COMPLEX Qty: 15 0RF Rx Instructions: Apply to low back or most painful area and leave on for 12 hours. Remove and leave off for 12 hours before using a new patch No Action Bystolic 5 mg tablet 5 mg PO DAILY levocetirizine [Xyzal] 5 mg tablet 5 mg PO DAILY Qty: 90 3RF azelastine 137 mcg (0.1 %) aerosol,spray 2 spray intranasal BID Qty: 30 3RF Rx Instructions: administer into each nostril doxepin 25 mg capsule 25 mg PO QHS PRN (Reason: sleep) Qty: 30 0RF escitalopram oxalate [Lexapro] 10 mg tablet 10 mg PO DAILY cholecalciferol (vitamin D3) 1,250 mcg (50,000 unit) capsule 1,250 mcg PO .2qweekly Qelbree 200 mg capsule,extended release 24hr 200 mg PO .COMPLEX Qty: 60 1RF Rx Instructions: take 1 daily for 1 week; then increase to 2 capsules daily atorvastatin 40 mg Tablet 40 mg PO HS Referrals Follow up/Referrals: Yohana Hackett APRN [Primary Care Provider, Medical] - See instructions Activity Restrictions/Add. Instructions Additional Instructions/Restrictions: You were evaluated in the ER and are believed to be appropriate for discharge at this time. Take the newly prescribed methocarbamol (muscle relaxer) as directed if needed. Do not combine this with your Flexeril. You should take 1 medication or the other. Do not drive or operate machinery after taking this medication as it may make you sleepy. Use the prescribed lidocaine patches as directed for 12 hours at a time. Remove your current lidocaine patch around 11 AM tomorrow. Take Tylenol or ibuprofen if needed for pain, do not exceed the recommended dose on the bottle. Drink water and eat a small snack each time you take these medications to avoid side effects. follow-up with your primary care doctor in 2 to 3 days as well as pain management as scheduled. Return to the ER with any new, worsening, or otherwise concerning symptoms. Clinical Impressions Clinical Impression: Degenerative disc disease Print Language Print Language: Nigerian Discharge ED Provider: Brianda Whittaker General Adult HPI General Chief complaint: PAIN Stated complaint: back pain and down leg Time Seen by Provider: 08/17/25 23:01 Mode of Arrival: Ambulatory Source of Information: Patient and Spouse Description of Symptoms (Recalled from ER Triage Doc. by RN): elizabeth presents with rught back pain that riadates down into his right leg as well. this has been occuirng for 2.5 days and he has tried flexiril, meloxicam, and trazadone all prescribed at home with no relief. he is mostly concerned that he hasnt slept in 2.5 days. History of Present Illness HPI narrative: You were evaluated in the ER and are believed to be appropriate for discharge at this time. He is complaining of low back pain radiating into the right leg. Patient states he has been dealing with this for a while and had a recent MRI that showed disc bulges but he is not able to get into pain management until the . He states he has not slept in the last 2-1/2 days because his pain has been keeping him awake. He describes it as a chronic dull ache down the back of the right leg. He states he has a burning sensation in the lower leg associated with it but no numbness, tingling, or weakness. He has not had any acute onset back pain, this has been gradual progression of a chronic problem. He has not had any falls or traumatic injury. He denies any saddle anesthesia, no bowel or bladder incontinence, no fevers or chills, no chest pain or difficulty breathing, no nausea, vomiting, diarrhea. No other associated symptoms. Patient reports he has tried from his PCP in the past Flexeril, meloxicam, trazodone, and states he has not had relief from these. He states he has not taken Tylenol or ibuprofen today but typically these do not offer him relief. Related Data Home Medications ?Medication ?Instructions ?Recorded ?Confirmed nebivolol 5 mg tablet (Bystolic) 5 mg PO DAILY 9 10/19/24 cholecalciferol (vitamin D3) 1,250 1,250 mcg PO .2qwee kly 11/11/23 10/19/24 mcg (50,000 unit) capsule escitalopram oxalate 10 mg tablet 10 mg PO DAILY 11/1010/19/24 (Lexapro) atorvastatin 40 mg tablet 40 mg PO HS 11/26/23 5 Previous Rx's ?Medication ?Instructions ?Recorded azelastine 137 mcg (0.1 %) nasal 2 spray intranasal BI D allergy 12/03/23 spray symptoms #30 mL levocetirizine 5 mg tablet (Xyzal) 5 mg PO DAILY aller gy symptoms #90 12/03/23 tabs doxepin 25 mg capsule 25 mg PO QHS PRN sleep #30 c aps 08/20/24 viloxazine 200 mg capsule,extended 200 mg PO .COMPLEX #60 caps 10/01/24 release 24 hr (Qelbree) lidocaine 5 % topical patch See Rx Instructions topica l 08/17/25 .COMPLEX #15 ea methocarbamol 500 mg tablet 500 mg PO Q6H PRN muscle s pasm #30 08/17/25 tabs Allergies Allergy/AdvReac Type Severity Reaction Status Date / Time No Known Allergies Allergy Verified 09/06/24 18:45 PFSH PFS Disclaimer: The information contained in this section may have been updated after the cherise nt was seen, as this information can be updated by other users. Medical History (Updated 08/17/25 @ 23:11 by Kinga Lopez MD) Insomnia Attention deficit disorder (ADD) in adult Sinusitis Tinnitus Posttraumatic stress disorder Major depressive disorder Tobacco dependence syndrome Daytime somnolence PVC (premature ventricular contraction) Dyspnea Palpitations Social History Smoking Status: Current every day smoker tobacco type: cigarettes packs per day: 1 quit status: considering quitting second hand exposure: No alcohol intake: current alcohol intake frequency: 3 or more drinks per day counseling given: Yes (he has been drinking 1/2 a 1/5 of bourbon) counseling provided: provider counseling and reduce to 2 or less/day substance use type: denies use counseling given: No current occupational status: unemployed and other details: fired last week Travel in the last 8 weeks?: None adopted: No caregiver/support person: No foster care: No household members: spouse housing: house lives independently: Yes marital status: number of children: 2 education level: college service: No alf: No current occupation: he is about a semester away from [employer] degree Hx Recent Travel: Yes (he recently went to [place]; for a week) out of state: Yes out of country: Yes caffeine: Yes physical activity: none working smoke detector in home: Yes fire extinguisher in home: Yes carbon monox detector in home: Yes firearms in home: Yes firearms unloaded and locked: Yes do you feel safe at home: Yes victim of physical abuse: No victim of emotional abuse: No victim of sexual abuse: No would you like helpful sources: No Have you lived/traveled outside US in past 30 days?: No Contact w/someone who lives/traveled outside US past 30 days?: No Exposure to someone with infectious disease in past 14 days?: No Do you have a fever (greater than 100.4 F or 38 C)?: No Have you tested positive for COVID-19?: No Exposed to someone with COVID-19 in past 14 days?: No Do you have a sore throat?: No Do you have a cough?: No Do you have any weakness?: No Do you have any diarrhea?: No Are you experiencing any unusual bleeding?: No Do you have any muscle aches/pain?: No Do you have any abdominal pain?: No Are you experiencing loss of taste or smell?: No Other Medical History Have you received the Flu Vaccine for this season: No Have you received the Pneumonia Vaccine: Yes ROS Obtained: Yes Systems reviewed as appropriate & no additional complaints except as documented Per HPI Physical Exam General General appearance: alert and in no apparent distress Comment: Overweight Head Head exam: atraumatic and normocephalic Eye Eye exam: Present PERRL and EOMI ENT ENT exam: Present mucous membranes moist Neck Neck exam: Present normal inspection and full ROM Chest Chest inspection: Present symmetric chest wall rise Respiratory Respiratory exam: Absent respiratory distress or stridor Cardiovascular Cardiovascular exam: Present regular rate and normal rhythm Extremities Exam Extremities exam: Present full ROM Back Exam Back exam: Present straight leg raise (R); Absent CVA tenderness (R), CVA tenderness (L) or vertebral tenderness Neurological Exam Neurological exam: Present alert, oriented X3 and other (No saddle anesthesia); Absent motor sensory deficit Psychiatric Psychiatric exam: Present normal affect and normal mood Skin Skin exam: Present warm and dry Medical Decision Making Medical Records Medical records reviewed: Yes I reviewed the patient's medical records. Screening: Per USPSTF and CDC recommendations, given the prevalence of disease in our region, it is our hospital?s policy to screen for HIV and viral Hepatitis for all patients aged 18 and over and those with ongoing risk factors. MR Comment: MRI performed 07/23/2025 demonstrates patient has disc bulges at L3- L4, L4-L5, L5-S1. There is mild associated neural foraminal narrowing. Yosvany Inquiry Pt receiving controlled substance: No Vital Signs: 08/17/25 22:40 Temperature 98.2 F Temperature Source Oral Pulse Rate [Right Radial] 99 H Respiratory Rate 20 Blood Pressure [Right Arm] 156/101 H Blood Pressure Mean [Right Arm] 119 Blood Pressure Source [Right Arm] Automatic Cuff Blood Pressure Position [Right Arm] Sitting 02 Sat by Pulse Oximetry 99 Oxygen Delivery Method Room Air Orders (Tests/Meds): ED MEDICATIONS Generic Name Dose Route Start Last Admin Trade Name Freq PRN Reason Stop Dose Admin Ketorolac Tromethamine 30 mg 08/17/25 23:07 Ketorolac 30mg/Ml Vial IM 08/17/25 23:08 ONCE ONE Lidocaine 1 each 08/17/25 23:07 Lidocaine 5% Transdermal Patch TD 08/17/25 23:08 ONCE ONE Methocarbamol 1,000 mg 08/17/25 23:15 Methocarbamol 500mg Tablet PO 09/16/25 23:14 BID [facility] Medical Decision Narrative: In summary, this 49-year-old male with history of RBBB, PTSD presents to the emergency department today with low back pain radiating into the leg gradually worsening of a chronic problem. On initial evaluation patient is hemodynamically stable, afebrile, GCS 15, ambulatory into the ER independently, no neurologic deficits, no saddle anesthesia, no bowel or bladder incontinence, no CVA tenderness, no midline tenderness or pain, no obvious muscle spasm in the low back palpated, remainder of exam benign. Differential diagnosis includes but is not limited to muscle spasm, sciatica, degenerative disc disease, radiculopathy, piriformis syndrome, I considered cauda equina but have no clinical evidence of this specifically no red flag symptoms including no sudden onset pain, no paralysis, no weakness, no saddle anesthesia, no bowel or bladder incontinence or difficulty passing urine or stool. [facility] and does not having any red flag symptoms so I do not believe labs or imaging are indicated at this time. I will proceed with conservative management with Toradol, methocarbamol, lidocaine patch. I discussed these interventions with the patient and he is willing to try them. I prescribed methocarbamol and lidocaine patches for home use. I instructed him to follow-up closely with his PCP and pain management as scheduled. Patient was given instructions on symptomatic management, follow up instructions, and return precautions for the emergency department. Patient indicated understanding and was discharged in stable condition. Critical Care Critical Care Time Critical Care Time: No
[2025-08-17] MEDS: METHOCARBAMOL 500MG TABLET 1000 MG PO (23:31)
[2025-08-17] MEDS: LIDOCAINE 5% TRANSDERMAL PATCH 1 EACH TD (23:32)
[2025-08-17] MEDS: KETOROLAC 30MG/ML VIAL 30 MG IM (23:32)
[2025-08-17 23:40] VITALS: BP 148/99; PULSE 87; RESP 20; TEMP 36.8; O2SAT 99
== END 2025-08-17 23:43 | disposition home or self-care (01) ==
PROVIDERS: Emergency Provider Student in an Organized Health Care Education/Training Program; PCP Nurse Practitioner
DX: M54.50 Low back pain, unspecified (principal); G89.29 Other chronic pain; F17.210 Nicotine dependence, cigarettes, uncomplicated; F98.8 Other specified behavioral and emotional disorders with onset usually occurring in childhood and adolescence; F32.A Depression, unspecified; F43.10 Post-traumatic stress disorder, unspecified; Z79.899 Other long term (current) drug therapy
CPT/HCPCS: 96372; 99283; J1885

== ENCOUNTER 2025-08-21 14:10 | Emergency (ER) | payer BC, SELFPAY ==
[2025-08-21 14:18] VITALS: BP 180/117; PULSE 78; RESP 20; TEMP 36.9; O2SAT 98; BMI 31.6
--- NOTE | 2025-08-21 14:27 | CT_ITS ---
PROCEDURE INFORMATION: Exam: CT Abdomen And Pelvis Without Contrast Exam date and time: 08/21/2025 3:12 PM Age: 49 years old Clinical indication: Abdominal pain; Additional info: Flank pain TECHNIQUE: Imaging protocol: Computed tomography of the abdomen and pelvis without contrast. Radiation optimization: All CT scans at this facility use at least one of these dose optimization techniques: automated exposure control; mA and/or kV adjustment per patient size (includes targeted exams where dose is matched to clinical indication); or iterative reconstruction. COMPARISON: MR LUMBAR SPINE WO CON 07/23/2025 7:32 AM FINDINGS: Liver: Normal. No mass. Gallbladder and biliary ducts: The gallbladder is unremarkable Pancreas: Normal. No ductal dilation. Spleen: The spleen demonstrates punctate calcifications, consistent with remote granulomatous organism exposure. Adrenal glands: Normal. No mass. Kidneys and ureters: 12x 10 millimeter proximal LEFT ureteral calculus causes dilatation of LEFT collecting system and LEFT ureter. The LEFT kidney is edematous and there is LEFT perirenal stranding. Nonobstructing renal calculi bilaterally Stomach and bowel: Unremarkable. No obstruction. No mucosal thickening. Appendix: Normal appendix Intraperitoneal space: Unremarkable. No free air. No significant fluid collection. Vasculature: Unremarkable. No abdominal aortic aneurysm. Lymph nodes: Unremarkable. No enlarged lymph nodes. Urinary bladder: Unremarkable as visualized. Reproductive: Unremarkable as visualized. Bones/joints: Unremarkable. No acute fracture. Soft tissues: Unremarkable. IMPRESSION: 12x 10 millimeter proximal LEFT ureteral calculus causes dilatation of LEFT collecting system and LEFT ureter. The LEFT kidney is edematous and there is LEFT perirenal stranding.
--- NOTE | 2025-08-21 14:32 | ED_ITS ---
<Statement entered by Devonte Kulkarni MD - 08/27/25 07:26> I was consulted by the GENESIS, and we discussed the complexity of the problems being addressed. I approved the treatment and management plan for this patient's care in the emergency department, thus performing a substantive portion of the medical decision making. Devonte Kulkarni MD, BISI, FACEP Discharge Plan Disposition Patient Disposition: Xfer Short-Term Hosp Condition: Good Prescriptions Prescriptions: No Action azelastine 137 mcg (0.1 %) aerosol,spray 2 spray intranasal BID Qty: 30 3RF Rx Instructions: administer into each nostril ropinirole 0.5 mg tablet 0.5 mg PO HS Qty: 14 0RF Rx Instructions: administer 1-3 hours before bedtime cyclobenzaprine 10 mg tablet 10 mg PO TID polyethylene glycol 3350 [Miralax] 17 gram Powder In Packet 17 g PO DAILY prednisone 20 mg tablet 60 mg PO DAILY omeprazole 40 mg Capsule,Delayed Release(Dr/Ec) 40 mg PO DAILY aspirin [Aspir-81] 81 mg Tablet,Delayed Release (Dr/Ec) 81 mg PO DAILY tramadol 50 mg Tablet 50 mg PO Q6H PRN (Reason: Pain, Moderate) acetaminophen 500 mg Tablet 500 mg PO Q4HP PRN (Reason: Pain, Mild) levothyroxine [Synthroid] 100 mcg Tablet 100 mcg PO DAILY lorazepam [Ativan] 0.5 mg Tablet 0.5 mg PO HS trazodone 100 mg Tablet 100 mg PO HS PRN (Reason: Sleep) melatonin 3 mg Lozenge 3 mg PO HS ferrous sulfate 325 mg (65 mg iron) Capsule, Extended Release 325 mg PO DAILY risperidone 1 mg Tablet,Disintegrating 1 mg PO DAILY risperidone 2 mg Tablet,Disintegrating 2 mg PO HS rosuvastatin 10 mg Tablet 10 mg PO DAILY metoprolol tartrate 25 mg Tablet 25 mg PO BID quetiapine [Seroquel] 50 mg Tablet 25 mg PO HS sodium chloride 1,000 mg Tablet,Soluble 1,000 mg PO DAILY methocarbamol 500 mg tablet 500 mg PO Q6H PRN (Reason: muscle spasm) Qty: 30 0RF lidocaine 5 % adhesive patch,medicated See Rx Instructions .ROUTE .COMPLEX Qty: 15 0RF Rx Instructions: Apply to low back or most painful area and leave on for 12 hours. Remove and leave off for 12 hours before using a new patch Referrals Follow up/Referrals: Yohana Hackett APRN [Primary Care Provider, Medical] - See instructions Clinical Impressions Clinical Impression: Kidney stone Stand Alone Forms Stand Alone Forms: Transfer Record - ED Instructions Patient Instructions: DI for Low Back Pain Print Language Print Language: Lithuanian Discharge ED Provider: Devonte Kulkarni General Adult HPI <Clarke Zambrano ([facility]), ANN[place] - Last Filed: 08/21/25 17:02> General Chief complaint: Back Pain/Injury Stated complaint: possible left kidney stone pain Time Seen by Provider: 08/21/25 14:24 Mode of Arrival: Ambulatory Source of Information: Patient and Spouse Description of Symptoms (Recalled from ER Triage Doc. by RN): elmer presents for left sided flank pain that started today. patient stated he had an xray of his back due to issues back in June and it stated that he had 3 non obstructing kidney stones at the time. he hasnt had any issued since then until today. he appears very uncomfortbale, stated he has been vomiting in the last 2 hours and rates it 10/10. History of Present Illness HPI narrative: 49-year-old male presents for left flank pain. Patient states he does not have a history of kidney stones but was told after he had some imaging on his back that he had some stones in his kidney. Patient states this morning started with extreme pain in the left flank and vomiting. Rates pain 10 out of 10 Related Data Home Medications ?Medication ?Instructions ?Recorded ?Confirmed acetaminophen 500 mg tablet 500 mg PO Q4HP PRN Pain, M ild 08/17/25 08/26/25 aspirin 81 mg tablet,delayed 81 mg PO DAILY 08/17/25 1 10/27/24 release cyclobenzaprine 10 mg tablet 10 mg PO TID 08/17/25 ferrous sulfate 325 mg (65 mg 325 mg PO DAILY 08/17/25 08/26/25 iron) capsule,extended release levothyroxine 100 mcg tablet 100 mcg PO DAILY 08/17/25 08/26/25 (Synthroid) lorazepam 0.5 mg tablet (Ativan) 0.5 mg PO HS 08/17/25 08/26/25 melatonin 3 mg lozenges 3 mg PO HS 08/17/25 08/26/25 metoprolol tartrate 25 mg tablet 25 mg PO BID 08/17/25 08/26/25 omeprazole 40 mg capsule,delayed 40 mg PO DAILY 08/26/25 release polyethylene glycol 3350 17 gram 17 g PO DAILY 5 08/26/25 oral powder packet (Miralax) prednisone 20 mg tablet 60 mg PO DAILY 08/17/2508/09 quetiapine 50 mg tablet (Seroquel) 25 mg PO HS 5 08/26/25 risperidone 1 mg disintegrating 1 mg PO DAILY 08/17/25 08/26/25 tablet risperidone 2 mg disintegrating 2 mg PO HS 08/17/25 tablet rosuvastatin 10 mg tablet 10 mg PO DAILY 08/17/2508/09 sodium chloride 1,000 mg soluble 1,000 mg PO DAILY 06/0308/26/25 tablet tramadol 50 mg tablet 50 mg PO Q6H PRN Pain, Moder ate 08/17/25 08/26/25 trazodone 100 mg tablet 100 mg PO HS PRN Sleep 08/1708/26/25 Previous Rx's ?Medication ?Instructions ?Recorded azelastine 137 mcg (0.1 %) nasal 2 spray intranasal BI D allergy 12/03/23 spray symptoms #30 mL lidocaine 5 % topical patch See Rx Instructions topica l 08/17/25 .COMPLEX #15 ea methocarbamol 500 mg tablet 500 mg PO Q6H PRN muscle s pasm #30 08/17/25 tabs ropinirole 0.5 mg tablet 0.5 mg PO HS #14 tabs Allergies Allergy/AdvReac Type Severity Reaction Status Date / Time No Known Allergies Allergy Verified 08/26/25 15:54 [facility] <Clarke Zambrano ([facility]), ELECTRONICS REPAIR TECHNICIAN - Last Filed: 08/21/25 17:02> [facility] Disclaimer: The information contained in this section may have been updated after the patient was seen, as this information can be updated by other users. Medical History Insomnia Attention deficit disorder (ADD) in adult Sinusitis Tinnitus Posttraumatic stress disorder Major depressive disorder Tobacco dependence syndrome Daytime somnolence PVC (premature ventricular contraction) Dyspnea Palpitations Social History Smoking Status: Current every day smoker tobacco type: cigarettes packs per day: 1 quit status: considering quitting second hand exposure: No alcohol intake: current alcohol intake frequency: 3 or more drinks per day counseling given: Yes (he has been drinking 1/2 a 1/5 of bourbon) counseling provided: provider counseling and reduce to 2 or less/day substance use type: denies use counseling given: No current occupational status: unemployed and other details: fired last week Travel in the last 8 weeks?: None adopted: No caregiver/support person: No foster care: No household members: spouse housing: house lives independently: Yes marital status: number of children: 2 education level: college service: No half-way: No current occupation: he is about a semester away from [employer] degree Hx Recent Travel: Yes (he recently went to [place]; for a week) out of state: Yes out of country: Yes caffeine: Yes physical activity: none working smoke detector in home: Yes fire extinguisher in home: Yes carbon monox detector in home: Yes firearms in home: Yes firearms unloaded and locked: Yes do you feel safe at home: Yes victim of physical abuse: No victim of emotional abuse: No victim of sexual abuse: No would you like helpful sources: No Have you lived/traveled outside [place] in past 30 days?: No Contact w/someone who lives/traveled outside US past 30 days?: No Exposure to someone with infectious disease in past 14 days?: No Do you have a fever (greater than 100.4 F or 38 C)?: No Have you tested positive for COVID-19?: No Exposed to someone with COVID-19 in past 14 days?: No Do you have a sore throat?: No Do you have a cough?: No Do you have shortness of breath?: No Do you have a headache?: No Do you have any weakness?: No Are you experiencing any nausea/vomitting?: No Do you have any diarrhea?: No Are you experiencing any unusual bleeding?: No Do you have any muscle aches/pain?: No Do you have any abdominal pain?: No Are you experiencing loss of taste or smell?: No Other Medical History Have you received the Flu Vaccine for this season: No Have you received the Pneumonia Vaccine: Yes <Camgumaro aleksandra ([facility]), ELECTRONICS REPAIR TECHNICIAN - Last Filed: 08/21/25 17:02> ROS Obtained: Yes Systems reviewed as appropriate & no additional complaints except as documented Genitourinary Male Genitourinary: Reports system reviewed and no additional complaints, except as documented, Reports as per HPI and Reports other (Flank pain) Physical Exam <Camgumaro Zambrano ([facility]), ELECTRONICS REPAIR TECHNICIAN - Last Filed: 08/21/25 17:02> General General appearance: alert and in no apparent distress ENT ENT exam: Present normal exam Respiratory Respiratory exam: Present normal lung sounds bilaterally Cardiovascular Cardiovascular exam: Present regular rate and normal rhythm Abdominal Exam Abdominal exam: Present soft and normal bowel sounds Back Exam Back exam: Present tenderness and CVA tenderness (L) Neurological Exam Neurological exam: Present alert and oriented X3 Skin Skin exam: Present warm and intact Medical Decision Making <Camgumaro Zambrano ([facility]), ELECTRONICS REPAIR TECHNICIAN - Last Filed: 08/21/25 17:02> Medical Records Medical records reviewed: Yes I reviewed the patient's medical records. Screening: Per USPSTF and CDC recommendations, given the prevalence of disease in our region, it is our hospital?s policy to screen for HIV and viral Hepatitis for all patients aged 18 and over and those with ongoing risk factors. Yosvany Inquiry Pt receiving controlled substance: No Yosvany was queried for this patient: No Vital Signs: 08/21/25 14:18 08/21/25 17:20 Temperature 98.5 F 98.2 F Temperature Source Oral Oral Pulse Rate 86 Pulse Rate [Right Radial] 78 Respiratory Rate 20 18 Blood Pressure 157/116 H Blood Pressure [Right Arm] 180/117 H Blood Pressure Mean [Right Arm] 138 Blood Pressure Source Automatic Cuff Blood Pressure Source [Right Arm] Automatic Cuff Blood Pressure Position Sitting Blood Pressure Position [Right Arm] Sitting 02 Sat by Pulse Oximetry 98 Oxygen Delivery Method Room Air Room Air Lab Data Lab results reviewed: Yes I reviewed the patient's lab results. Lab Results 08/21/25 14:18: WBC 7.7, RBC 5.48, Hgb 16.5, Hct 47.9, MCV 87.4, MCH 30.1, MCHC 34.4, RDW 12.9, Plt Count 293, MPV 9.7, Neut % (Auto) 77.7, Lymph % (Auto) 14.1, Garfield % (Auto) 6.8, Eos % (Auto) 0.5, Baso % (Auto) 0.5, Neut # (Auto) 6.0, Lymph # (Auto) 1.1, Garfield # (Auto) 0.5, Eos # (Auto) 0.0, Baso # (Auto) 0.0, Sodium 142, Potassium 4.4, Chloride 104, Carbon Dioxide 29, Anion Gap 13.4, BUN 15, Creatinine 1.10, Estimated Creat Clear 133, Estimated GFR 71, Est GFR ( Amer) 85, Glucose 104 H, Calcium 9.6, Total Bilirubin 0.6, AST 41, ALT 38, Alkaline Phosphatase 51, Total Protein 8.1, Albumin 5.2 H, Globulin 2.9, Albumin/Globulin Ratio 1.8 08/21/25 14:18 08/21/25 14:18 Orders (Tests/Meds): ED MEDICATIONS Discontinued Medications Generic Name Dose Route Start Last Admin Trade Name Freq PRN Reason Stop Dose Admin Hydromorphone HCl 0.5 mg 08/21/25 16:58 08/21/25 17:02 Hydromorphone 2mg/Ml Syringe IV 09/20/25 16:57 0.5 mg Q2HP PRN Administration Severe Pain (7-10) Sodium Chloride 1,000 mls @ 999 mls/hr 08/21/25 14:27 08/21/25 15:40 Sod Chlor 0.9% 1000ml Bag IV 08/21/25 15:27 Infused .Q1H1M ONE Infusion Ceftriaxone Sodium 2 gm/ 100 mls @ 200 mls/hr 08/21/25 17:00 08/21/25 17:35 Sodium Chloride IV 08/31/25 16:59 Infused Q24H TD Infusion Ketorolac Tromethamine 15 mg 08/21/25 14:27 08/21/25 14:39 Ketorolac 15mg/Ml Vial IV 08/21/25 14:28 15 mg ONCE ONE Administration Morphine Sulfate 4 mg 08/21/25 14:27 08/21/25 14:39 Morphine 4mg/Ml Syringe IV 08/21/25 14:28 4 mg ONCE ONE Administration Morphine Sulfate 4 mg 08/21/25 15:53 08/21/25 15:55 Morphine 4mg/Ml Syringe IV 08/21/25 15:54 4 mg ONCE ONE Administration Ondansetron HCl 4 mg 08/21/25 14:27 08/21/25 14:39 Ondansetron 4mg/2ml Vial IV 08/21/25 14:28 4 mg ONCE ONE Administration ORDERS Category Date Time Status CT abdomen pelvis wo con Stat Cat Scan 08/21/25 14:27 Completed CBC w/Auto Diff [Complete Blood Count Auto Diff] Stat Lab 08/21/25 14:18 Completed CMP [Comprehensive Metabolic Panel] Stat Lab 08/21/25 14:18 Completed Medical Decision Narrative: In summary patient is a 49-year-old male who presents to the emergency department for evaluation of left flank pain. Patient is hemodynamically stable upon arrival, afebrile. Unremarkable physical exam. Differential diagnosis includes kidney stone, infection. Initial workup will be conducted with labs, CT. Initial inventions include IV fluids, Toradol, morphine, Dilaudid, Rocephin,Zofran. Initial workup reviewed by ky CT-.12x 10 millimeter proximal LEFT ureteral calculus causes dilatation of LEFT collecting system and LEFT ureter. The LEFT kidney is edematous and there is LEFT perirenal stranding. Upon repeat evaluation after the second dose of morphine patient is resting comfortably in bed. Given this patient will need to be transferred. [facility] Hoover excepted patient for transfer <Devonte Kulkarni MD - Last Filed: 08/27/25 07:26> Vital Signs: 08/21/25 14:18 08/21/25 17:20 Temperature 98.5 F 98.2 F Temperature Source Oral Oral Pulse Rate 86 Pulse Rate [Right Radial] 78 Respiratory Rate 20 18 Blood Pressure 157/116 H Blood Pressure [Right Arm] 180/117 H Blood Pressure Mean [Right Arm] 138 Blood Pressure Source Automatic Cuff Blood Pressure Source [Right Arm] Automatic Cuff Blood Pressure Position Sitting Blood Pressure Position [Right Arm] Sitting 02 Sat by Pulse Oximetry 98 Oxygen Delivery Method Room Air Room Air Lab Data Lab Results 08/21/25 14:18: WBC 7.7, RBC 5.48, Hgb 16.5, Hct 47.9, MCV 87.4, MCH 30.1, MCHC 34.4, RDW 12.9, Plt Count 293, MPV 9.7, Neut % (Auto) 77.7, Lymph % (Auto) 14.1, Garfield % (Auto) 6.8, Eos % (Auto) 0.5, Baso % (Auto) 0.5, Neut # (Auto) 6.0, Lymph # (Auto) 1.1, Garfield # (Auto) 0.5, Eos # (Auto) 0.0, Baso # (Auto) 0.0, Sodium 142, Potassium 4.4, Chloride 104, Carbon Dioxide 29, Anion Gap 13.4, BUN 15, Creatinine 1.10, Estimated Creat Clear 133, Estimated GFR 71, Est GFR ( Amer) 85, Glucose 104 H, Calcium 9.6, Total Bilirubin 0.6, AST 41, ALT 38, Alkaline Phosphatase 51, Total Protein 8.1, Albumin 5.2 H, Globulin 2.9, Albumin/Globulin Ratio 1.8 Orders (Tests/Meds): ED MEDICATIONS Discontinued Medications Generic Name Dose Route Start Last Admin Trade Name Freq PRN Reason Stop Dose Admin Hydromorphone HCl 0.5 mg 08/21/25 16:58 08/21/25 17:02 Hydromorphone 2mg/Ml Syringe IV 09/20/25 16:57 0.5 mg Q2HP PRN Administration Severe Pain (7-10) Sodium Chloride 1,000 mls @ 999 mls/hr 08/21/25 14:27 08/21/25 15:40 Sod Chlor 0.9% 1000ml Bag IV 08/21/25 15:27 Infused .Q1H1M ONE Infusion Ceftriaxone Sodium 2 gm/ 100 mls @ 200 mls/hr 08/21/25 17:00 08/21/25 17:35 Sodium Chloride IV 08/31/25 16:59 Infused Q24H TD Infusion Ketorolac Tromethamine 15 mg 08/21/25 14:27 08/21/25 14:39 Ketorolac 15mg/Ml Vial IV 08/21/25 14:28 15 mg ONCE ONE Administration Morphine Sulfate 4 mg 08/21/25 14:27 08/21/25 14:39 Morphine 4mg/Ml Syringe IV 08/21/25 14:28 4 mg ONCE ONE Administration Morphine Sulfate 4 mg 08/21/25 15:53 08/21/25 15:55 Morphine 4mg/Ml Syringe IV 08/21/25 15:54 4 mg ONCE ONE Administration Ondansetron HCl 4 mg 08/21/25 14:27 08/21/25 14:39 Ondansetron 4mg/2ml Vial IV 08/21/25 14:28 4 mg ONCE ONE Administration ORDERS Category Date Time Status CT abdomen pelvis wo con Stat Cat Scan 08/21/25 14:27 Completed CBC w/Auto Diff [Complete Blood Count Auto Diff] Stat Lab 08/21/25 14:18 Completed CMP [Comprehensive Metabolic Panel] Stat Lab 08/21/25 14:18 Completed Critical Care <Clarke Zambrano ([facility]), ELECTRONICS REPAIR TECHNICIAN - Last Filed: 08/21/25 17:02> Critical Care Time Critical Care Time: No <Devonte Kulkarni MD - Last Filed: 08/27/25 07:26> Critical Care Time Critical Care Time: Yes Attestation: On 08/21/25, the high probability of a clinically significant, sudden or life threatening deterioration of the following system(s) required my full and direct attention, intervention and personal management. The time I documented below is in addition to time spent performing reported procedures but includes the following listed in this critical care notation. Total Time Total Critical Care Time: 35
[2025-08-21 14:34] LABS: Hematocrit 47.9 % (42.0-52.0); Hemoglobin 16.5 g/dL (14.1-18.0); Immature Granulocytes % 0.4 %; Mean Corpuscular HGB Conc 34.4 g/dL (31.8-35.4); Mean Corpuscular Hemoglobin 30.1 pg (27.0-31.2); Mean Corpuscular Volume 87.4 fl (80-94); Nucleated Red Blood Cells % 0 %; Platelet Count 293 K/mm3 (142-424); Red Blood Count 5.48 M/mm3 (4.60-6.20); Red Cell Distribution Width-SD 41.2 fL; White Blood Count 7.7 K/mm3 (4.8-10.8)
[2025-08-21] MEDS: KETOROLAC 15MG/ML VIAL 15 MG IV (14:39)
[2025-08-21] MEDS: ONDANSETRON 4MG/2ML VIAL 4 MG IV (14:39)
[2025-08-21] MEDS: MORPHINE 4MG/ML SYRINGE 4 MG IV ×2 (14:39→15:55)
[2025-08-21] MEDS: 0.9 % SODIUM CHLORIDE 1000ML 1,000 ML 999 ML IV (14:39)
[2025-08-21 14:43] LABS: Albumin Level 5.2 g/dl (3.5-5.0); Chloride 104 mmol/L (98-107)
[2025-08-21 14:44] LABS: Potassium 4.4 mmoL/L (3.5-5.1); Sodium 142 mmol/L (136-145)
[2025-08-21 14:46] LABS: Alanine Aminotransferase 38 U/L (12-78); Albumin/Globulin Ratio 1.8 (1.1-1.8); Alkaline Phosphatase 51 U/L (38-126); Anion Gap 13.4 mEq/L (5-15); Aspartate Amino Transferase 41 U/L (17-59); Bilirubin,Total 0.6 mg/dl (0.2-1.3); Blood Urea Nitrogen 15 mg/dl (9-20); Carbon Dioxide 29 mmol/L (22.0-30.0); Creatinine Clearance Estimated 133 mL/min (50-200); Creatinine,Serum 1.10 mg/dl (0.66-1.25); Estimated Glomerular Filt Rate 71 ml/min (>60); GFR (African American) 85 ML/MIN (>60); Globulin 2.9 g/dL (1.3-3.2); Total Protein,Serum 8.1 g/dl (6.3-8.2)
[2025-08-21 14:47] LABS: Calcium 9.6 mg/dl (8.4-10.2); Glucose 104 mg/dl (74-100)
--- NOTE | 2025-08-21 15:52 | PC.NURSE ---
DR GALVAN AT BEDSIDE TO UPDATE PT
--- NOTE | 2025-08-21 16:03 | PC.NURSE ---
called [facility] transfer center. Will call back with urology provider when available
--- NOTE | 2025-08-21 16:23 | PC.NURSE ---
[facility] to call [facility]ist
[2025-08-21] MEDS: HYDROMORPHONE 2MG/ML SYRINGE 0.5 MG IV (17:02)
[2025-08-21 17:20] VITALS: BP 157/116; PULSE 86; RESP 18; TEMP 36.8; O2SAT 99
== END 2025-08-21 17:20 | disposition short-term general hospital (02) ==
PROVIDERS: Nurse Practitioner Family; Emergency Provider Student in an Organized Health Care Education/Training Program; PCP Nurse Practitioner
DX: N20.2 Calculus of kidney with calculus of ureter (principal); F17.210 Nicotine dependence, cigarettes, uncomplicated; F98.8 Other specified behavioral and emotional disorders with onset usually occurring in childhood and adolescence; F43.10 Post-traumatic stress disorder, unspecified; F32.9 Major depressive disorder, single episode, unspecified; Z79.899 Other long term (current) drug therapy; Z79.82 Long term (current) use of aspirin; Z87.442 Personal history of urinary calculi
CPT/HCPCS: 74176; 80053; 85025; 96361; 96374; 96375; 96376; 99285; J0696; J1171; J1885; J2270; J2405; J7030